=== PATIENT | male | born 1990 | race Caucasian/White ===

== ENCOUNTER 2018-09-06 17:01 | Emergency (ER) | payer OTHER ==
[~2018-09-06] VITALS: Ht 170.2 cm; Wt 79.4 kg
--- NOTE | 2018-09-06 17:50 | PHYS DOC ---
Past Medical History Past Medical History: No Pertinent History Past Surgical History: Other Additional Information: CHEWING TOBACCO Alcohol Use: Occasionally Drug Use: None Adult General Chief Complaint Chief Complaint: FLANK PAIN HPI HPI Patient is a 28 year old male with no significant medical history who presents today with 10 out of 10 right flank pain that began at 3 PM today. Patient is also complaining of nausea with vomiting as well as urinary urgency and frequency. Patient denies any fever. Denies any hematuria. Denies any previous personal history of kidney stones. Review of Systems Review of Systems Constitutional: Denies fever or chills [] Eyes: Denies change in visual acuity, redness, or eye pain [] HENT: Denies nasal congestion or sore throat [] Respiratory: Denies cough or shortness of breath [] Cardiovascular: No additional information not addressed in HPI [] GI: Reports nausea and vomiting. Denies bloody stools or diarrhea [] : Reports urgency and frequency. Reports right flank pain. Denies dysuria or hematuria [] Musculoskeletal: Denies back pain or joint pain [] Integument: Denies rash or skin lesions [] Neurologic: Denies headache, focal weakness or sensory changes [] All other systems were reviewed and found to be within normal limits, except as documented in this note. Current Medications Current Medications Current Medications Medications (Trade) Dose Ordered Sig/[facility] Start Time Stop Time Status Last Admin Dose Admin Ketorolac Tromethamine (Toradol 30mg Vial) 30 mg 1X ONCE 09/06/18 18:00 09/06/18 18:01 DC 09/06/18 17:51 30 MG Morphine Sulfate (Morphine Sulfate) 5 mg 1X ONCE 09/06/18 19:30 09/06/18 19:31 DC 09/06/18 19:20 5 MG Ondansetron HCl (Zofran) 4 mg 1X ONCE 09/06/18 18:00 09/06/18 18:01 DC 09/06/18 17:46 4 MG Sodium Chloride 1,000 ml @ 1,000 mls/hr 1X ONCE 09/06/18 18:00 09/06/18 18:59 DC 09/06/18 17:52 1,000 MLS/HR Tamsulosin HCl (Flomax) 0.4 mg 1X ONCE 09/06/18 18:00 09/06/18 18:01 DC 09/06/18 17:55 0.4 MG Allergies Allergies Allergies Coded Allergies Type Severity Reaction Last Updated Verified No Known Drug Allergies 09/06/18 No Physical Exam Physical Exam Constitutional: Well developed, well nourished, no acute distress, non-toxic appearance. [] HENT: Normocephalic, atraumatic, bilateral external ears normal, oropharynx moist, no oral exudates, nose normal. [] Eyes: PERRLA, EOMI, conjunctiva normal, no discharge. [] Neck: Normal range of motion, no tenderness, supple, no stridor. [] Cardiovascular:Heart rate regular rhythm, no murmur [] Lungs & Thorax: Bilateral breath sounds clear to auscultation [] Abdomen: Bowel sounds normal, soft, no tenderness, no masses, no pulsatile masses. [] Skin: Warm, dry, no erythema, no rash. [] Back: No tenderness, moderate right CVA tenderness. [] Extremities: No tenderness, no cyanosis, no clubbing, ROM intact, no edema. [] Neurologic: Alert and oriented X 3, normal motor function, normal sensory function, no focal deficits noted. [] Psychologic: Affect normal, judgement normal, mood normal. [] Current Patient Data Vital Signs Vital Signs Date Time Temp Pulse Resp B/P (MAP) Pulse Ox O2 Delivery O2 Flow Rate FiO2 09/06/18 19:30 90 129/75 (93) 97 Room Air 09/06/18 17:48 26 09/06/18 17:01 97.6 97.6 Lab Values Laboratory Tests Test 09/06/18 17:34 09/06/18 19:00 White Blood Count 13.4 x10^3/uL (4.0-11.0) H Red Blood Count 5.10 x10^6/uL (4.30-5.70) Hemoglobin 15.6 g/dL (13.0-17.5) Hematocrit 44.2 % (39.0-53.0) Mean Corpuscular Volume 87 fL (79-100) Mean Corpuscular Hemoglobin 31 pg (25-35) Mean Corpuscular Hemoglobin Concent 35 g/dL (31-37) Red Cell Distribution Width 13.3 % (11.5-14.5) Platelet Count 239 x10^3/uL (140-400) Neutrophils (%) (Auto) 80 % (31-73) H Lymphocytes (%) (Auto) 10 % (24-48) L Monocytes (%) (Auto) 8 % (0-9) Eosinophils (%) (Auto) 1 % (0-3) Basophils (%) (Auto) 1 % (0-3) Neutrophils # (Auto) 10.7 x10^3uL (1.8-7.7) H Lymphocytes # (Auto) 1.4 x10^3/uL (1.0-4.8) Monocytes # (Auto) 1.0 x10^3/uL (0.0-1.1) Eosinophils # (Auto) 0.2 x10^3/uL (0.0-0.7) Basophils # (Auto) 0.1 x10^3/uL (0.0-0.2) Sodium Level 140 mmol/L (136-145) Potassium Level 3.6 mmol/L (3.5-5.1) Chloride Level 101 mmol/L (98-107) Carbon Dioxide Level 30 mmol/L (21-32) Anion Gap 9 (6-14) Blood Urea Nitrogen 16 mg/dL (8-26) Creatinine 1.4 mg/dL (0.7-1.3) H Estimated GFR (Cockcroft-Gault) 59.9 BUN/Creatinine Ratio 11 (6-20) Glucose Level 136 mg/dL (70-99) H Calcium Level 9.3 mg/dL (8.5-10.1) Total Bilirubin 1.2 mg/dL (0.2-1.0) H Aspartate Amino Transferase (AST) 22 U/L (15-37) Alanine Aminotransferase (ALT) 39 U/L (16-63) Alkaline Phosphatase 87 U/L (46-116) Total Protein 8.6 g/dL (6.4-8.2) H Albumin 4.1 g/dL (3.4-5.0) Albumin/Globulin Ratio 0.9 (1.0-1.7) L Lipase 80 U/L (73-393) Urine Collection Type Unknown Urine Color Chey Urine Clarity Cloudy Urine pH 5.5 Urine Specific Latta >=1.030 Urine Protein 30 mg/dL (NEG-TRACE) Urine Glucose (UA) Negative mg/dL (NEG) Urine Ketones (Stick) 15 mg/dL (NEG) Urine Blood Large (NEG) Urine Nitrite Negative (NEG) Urine Bilirubin Small (NEG) Urine Urobilinogen Dipstick 1.0 mg/dL (0.2 mg/dL) Urine Leukocyte Esterase Negative (NEG) Urine RBC Tntc /HPF (0-2) Urine WBC 0 /HPF (0-4) Urine Squamous Epithelial Cells None /LPF Urine Bacteria Few /HPF (0-FEW) Urine Mucus Mod /LPF Laboratory Tests 09/06/18 17:34 Laboratory Tests 09/06/18 17:34 EKG EKG [] Radiology/Procedures Radiology/Procedures []PROCEDURE: CT ABDOMEN PELVIS WO CONTRAST CT Abdomen; CT Pelvis without contrast INDICATION: RIGHT SIDE FLANK PAIN WITH INCREASED URINARY FREQUENCY COMPARISON: None. TECHNIQUE: Multiple contiguous axial images were obtained throughout the abdomen, and pelvis without the use of IV contrast. Axial images were reformatted into coronal and sagittal planes. FINDINGS: Abdomen findings: Evaluation of solid abdominal viscera is limited without the use of IV contrast. However, the liver, gallbladder, spleen, pancreas, and adrenal glands are unremarkable. 0.3 cm calculus in the distal right ureter results in mild right hydroureter and periureteral inflammatory changes. No left hydronephrosis. There is no significant mesenteric or retroperitoneal adenopathy identified, though evaluation is limited without intravenous contrast. Enlarged mesenteric lymph nodes, the largest of which is in the right hemiabdomen measuring 1.3 x 1.5 cm (image 107, series 2). No pneumoperitoneum. Mild colonic diverticulosis without evidence of diverticulitis. Visualized portions of the bowel are otherwise grossly unremarkable. Normal appendix. Pelvis findings: The bladder is underdistended limiting evaluation. There is no significant pelvic ascites. No significant iliac or inguinal adenopathy is identified. No acute osseous abdomen abnormality. IMPRESSION: 1. 0.3 cm calculus in the distal right ureter results in mild right hydroureter and periureteral inflammatory changes. 2. Enlarged mesenteric lymph nodes measuring up to 1.3 x 1.5 cm in the right hemiabdomen. PQRS Compliance Statement: One or more of the following individualized dose reduction techniques were utilized for this examination: 1. Automated exposure control 2. Adjustment of the mA and/or kV according to patient size 3. Use of iterative reconstruction technique Electronically signed by: Ehsan Baker MD (09/06/2018 6:40 PM) [facility] DICTATED and SIGNED BY: EHSAN BAKER MD DATE: 09/06/18 1830 Course & Med Decision Making Course & Med Decision Making Pertinent Labs and Imaging studies reviewed. (See chart for details) This is a 28-year-old male patient presented to the ED today with right flank pain, nausea vomiting, urinary frequency and urgency, symptoms began at 3 PM. CBC with a WBC of 13.4, CMP with creatinine of 1.4 BUN 16. Urine analysis is noted for large amount of blood, no infection. CT of the abdomen and pelvic was noted for-0.3 cm calculus in the distal right ureter results in mild right hydroureter and periureteral inflammatory changes. Enlarged mesenteric lymph nodes measuring up to 1.3 x 1.5 cm in the right hemiabdomen-can be followed up with PCP. Patient was given pain medicine, Flomax, IV fluids. Patient is well controlled. Will be discharged with Flomax, tramadol, Zofran and Cipro awaiting urine culture. Follow-up with urology next week. Reminded return precautions and discharged in stable condition. Staff Physician Addendum: I was working in the ER during the course of this patient's visit. I was available for consultation as needed, but I was not directly involved in the care of this patient. Dragon Disclaimer Dragon Disclaimer This electronic medical record was generated, in whole or in part, using a voice recognition dictation system. Departure Departure Impression: Primary Impression: Kidney stone Additional Impression: Hydronephrosis of left kidney Disposition: 01 HOME, SELF-CARE Condition: STABLE Referrals: NON,STAFF (PCP) JULY MONTANEZ MD Follow up next week Patient Instructions: Kidney Stones Additional Instructions: You were evaluated in the emergency room and noted to have a 0.3 mm kidney stone in your right distal ureter. This stone is small enough and should pass on its own. Push fluids. Take the pain medicine as needed for pain. Take the rest of the medications as prescribed. Come back to the emergency room at any point symptoms worsen. Do not drive or operate machinery on the pain medicine. Follow up with the provided Urologist in 1 week Scripts Tramadol Hcl (TRAMADOL HCL) 50 Mg Tablet 50 MG PO Q6HRS PRN for PAIN, #30 TAB Prov: ASMITA JULIEN SERVICES TECH 09/06/18 Tamsulosin Hcl (TAMSULOSIN HCL) 0.4 Mg Cap.er.24h 1 CAP PO DAILY, #7 CAP 0 Refills Prov: ASMITA JULIEN APRN 09/06/18 Ondansetron (ZOFRAN ODT) 4 Mg Tab.rapdis 1 TAB SL Q8HRS, #20 TAB Prov: ASMITA JULIEN APRN 09/06/18 Ciprofloxacin Hcl (CIPRO) 500 Mg Tablet 1 TAB PO BID, #14 TAB Prov: ASMITA JULIEN APRN 09/06/18 Problem Qualifiers ASMITA JULIEN APRN Sep 06, 2018 17:50 ANDRE RUBIN MD Sep 06, 2018 23:16
[2018-09-06 17:54] LABS: CALCIUM 9.3 mg/dL (8.5-10.1); CREATININE 1.4 mg/dL (0.7-1.3); GFR 59.9; POTASSIUM 3.6 mmol/L (3.5-5.1)
[2018-09-06 18:00] LABS: BASO # 0.1 x10^3/uL (0.0-0.2); BASO % 1 % (0-3); EOS # 0.2 x10^3/uL (0.0-0.7); EOS % 1 % (0-3); HEMATOCRIT 44.2 % (39.0-53.0); HEMOGLOBIN 15.6 g/dL (13.0-17.5); LYMPH # 1.4 x10^3/uL (1.0-4.8); LYMPH % 10 % (24-48); MEAN CORPUSCULAR HEMOGLOBIN 31 pg (25-35); MEAN CORPUSCULAR HGB CONC 35 g/dL (31-37); MEAN CORPUSCULAR VOLUME 87 fL (79-100); MONO % 8 % (0-9); NEUT # 10.7 x10^3uL (1.8-7.7); NEUT % 80 % (31-73); PLATELET COUNT 239 x10^3/uL (140-400); RED CELL DISTRIBUTION WIDTH 13.3 % (11.5-14.5); WHITE BLOOD COUNT 13.4 x10^3/uL (4.0-11.0)
[2018-09-06] MEDS ORDERED: MORPHINE SULFATE 10 MG/ML VIAL. IV ONE ×2 (18:00→19:30)
[2018-09-06] MEDS ORDERED: ONDANSETRON PF 4 MG/2 ML VIAL. IV ONE (18:00)
[2018-09-06] MEDS ORDERED: KETOROLAC 30 MG/ML VIAL. IV ONE (18:00)
[2018-09-06] MEDS ORDERED: TAMSULOSIN 0.4 MG CAP.ER.24H. PO ONE (18:00)
[2018-09-06] MEDS ORDERED: IV NORMAL SALINE 1000ML BAG 1,000 ML IV ONE (18:00)
[2018-09-06 18:01] LABS: ALBUMIN 4.1 g/dL (3.4-5.0); ALBUMIN/GLOBULIN RATIO 0.9 (1.0-1.7); TOTAL BILIRUBIN 1.2 mg/dL (0.2-1.0); TOTAL PROTEIN 8.6 g/dL (6.4-8.2)
--- NOTE | 2018-09-06 18:43 | RAD ---
CT Abdomen; CT Pelvis without contrast INDICATION: RIGHT SIDE FLANK PAIN WITH INCREASED URINARY FREQUENCY COMPARISON: None. TECHNIQUE: Multiple contiguous axial images were obtained throughout the abdomen, and pelvis without the use of IV contrast. Axial images were reformatted into coronal and sagittal planes. FINDINGS: Abdomen findings: Evaluation of solid abdominal viscera is limited without the use of IV contrast. However, the liver, gallbladder, spleen, pancreas, and adrenal glands are unremarkable. 0.3 cm calculus in the distal right ureter results in mild right hydroureter and periureteral inflammatory changes. No left hydronephrosis. There is no significant mesenteric or retroperitoneal adenopathy identified, though evaluation is limited without intravenous contrast. Enlarged mesenteric lymph nodes, the largest of which is in the right hemiabdomen measuring 1.3 x 1.5 cm (image 107, series 2). No pneumoperitoneum. Mild colonic diverticulosis without evidence of diverticulitis. Visualized portions of the bowel are otherwise grossly unremarkable. Normal appendix. Pelvis findings: The bladder is underdistended limiting evaluation. There is no significant pelvic ascites. No significant iliac or inguinal adenopathy is identified. No acute osseous abdomen abnormality. IMPRESSION: 1. 0.3 cm calculus in the distal right ureter results in mild right hydroureter and periureteral inflammatory changes. 2. Enlarged mesenteric lymph nodes measuring up to 1.3 x 1.5 cm in the right hemiabdomen. PQRS Compliance Statement: One or more of the following individualized dose reduction techniques were utilized for this examination: 1. Automated exposure control 2. Adjustment of the mA and/or kV according to patient size 3. Use of iterative reconstruction technique Electronically signed by: Ehsan Baker MD (09/06/2018 6:40 PM) [facility]
[2018-09-06 19:11] LABS: BILIRUBIN,URINE SMALL (NEG); CLARITY,URINE CLOUDY; COLOR,URINE AMBER; NITRITE,URINE NEGATIVE (NEG); PH,URINE 5.5; PROTEIN,URINE 30 mg/dL (NEG-TRACE)
[2018-09-06 19:19] LABS: RBC,URINE TNTC /HPF (0-2); WBC,URINE 0 /HPF (0-4)
[2018-09-06 19:20] LABS: BACTERIA,URINE FEW /HPF (0-FEW)
[2018-09-06 19:30] VITALS: BP 129/75
[2018-09-06] MEDS ORDERED: ONDA4TAB10 SL (19:38)
[2018-09-06] MEDS ORDERED: CIPR500T94 PO (19:38)
[2018-09-06] MEDS ORDERED: TRAM50TA PO (19:52)
[2018-09-06] MEDS ORDERED: TAMS0.4C2 PO (19:52)
== END 2018-09-06 20:07 | disposition home or self-care (01) ==
LOC: ER 17:01
DX: N13.2 Hydronephrosis with renal and ureteral calculous obstruction (principal); Z72.0 Tobacco use
CPT/HCPCS: 36415; 74176; 80053; 81001; 83690; 85025; 96361; 96374; 96375; 96376; 99285; J1885; J2270; J2405; J7030